=== PATIENT | female | born 1975 | race Caucasian/White ===

== ENCOUNTER 2020-04-30 13:54 | Emergency (ER) | payer OTHER | END 2020-04-30 16:51 | disposition home or self-care (01) | LOC: JVIRT 13:54 | DX: U07.1 COVID-19 (principal) | CPT/HCPCS: C9803; G2251-GT; U0003 ==

== ENCOUNTER 2021-11-03 17:57 | Emergency (ER) | payer OTHER ==
[2021-11-03 18:04] VITALS: BP 106/70; PULSE 92; RESP 18; TEMP 97.9; BMI 27.3
[2021-11-03] MEDS ORDERED: KETOROLAC TROMETHAMINE 30 MG/1 ML VIAL IM ONE (18:47)
[2021-11-03] MEDS ORDERED: KETOROLAC TROMETHAMINE 30 MG/1 ML VIAL ONE (19:00)
[2021-11-03] MEDS ORDERED: LIDOCAINE 5% TOPICAL PATCH TP ONE (19:17)
[2021-11-03] MEDS ORDERED: LIDOCAINE 5% TOPICAL PATCH ONE (19:19)
[2021-11-03] MEDS ORDERED: LIDOCAINE PATCH REMOVAL MC SCH (22:00)
== END 2021-11-03 19:34 | disposition home or self-care (01) ==
LOC: JER 17:57
PROC: 3E023GC Introduction of Other Therapeutic Substance into Muscle, Percutaneous Approach (ICD-10-PCS; principal; 2021-11-03)
DX: M94.0 Chondrocostal junction syndrome [Tietze] (principal)
CPT/HCPCS: 71101-TC-LT-FY; 93005; 93010; 99284-25

== ENCOUNTER 2021-11-27 02:38 | Emergency (ER) | payer OTHER ==
[2021-11-27 02:49] VITALS: BP 101/69; PULSE 88; RESP 18; TEMP 98.5; BMI 27.3
[2021-11-27] MEDS ORDERED: ACETAMINOPHEN 500 MG TABLET (FP) PO ONE (03:20)
[2021-11-27] MEDS ORDERED: DEXAMETHASONE SOD PHOSPHATE 10 MG/1 ML VIAL IM ONE (03:22)
[2021-11-27] MEDS ORDERED: KETOROLAC TROMETHAMINE 30 MG/1 ML VIAL IM ONE (03:22)
[2021-11-27] MEDS ORDERED: KETOROLAC TROMETHAMINE 30 MG/1 ML VIAL ONE (03:23)
[2021-11-27] MEDS ORDERED: DEXAMETHASONE SOD PHOSPHATE 10 MG/1 ML VIAL ONE (03:23)
[2021-11-27] MEDS ORDERED: AMOX TR/POT CLAV 875MG/125MG TABLETS (FP) PO ONE (03:27)
[2021-11-27] MEDS ORDERED: AMOX TR/POT CLAV 875MG/125MG TABLETS (FP) ONE (03:28)
== END 2021-11-27 03:51 | disposition home or self-care (01) ==
LOC: JER 02:38
PROC: 3E023GC Introduction of Other Therapeutic Substance into Muscle, Percutaneous Approach (ICD-10-PCS; principal; 2021-11-27)
DX: H66.91 Otitis media, unspecified, right ear (principal); J02.9 Acute pharyngitis, unspecified
CPT/HCPCS: 0241U-QW; 87651; 99284-25; J1100

== ENCOUNTER 2024-08-15 00:33 | Emergency (ER) | payer OTHER ==
[2024-08-15 00:42] VITALS: BP 115/78; PULSE 86; RESP 18; TEMP 98.4; BMI 28.5
[2024-08-15] MEDS ORDERED: ACETAMINOPHEN INJECTION 100 ML ONE (02:18)
[2024-08-15] MEDS: ACETAMINOPHEN 1000 MG/100 ML BAG IVPB ONE (02:22)
[2024-08-15] MEDS: SODIUM CHLORIDE 0.9% 500 ML INFUS.BAG IV ONE (02:22)
[2024-08-15 02:35] LABS: INR 0.98 (0.83-1.09); PROTHROMBIN TIME (PATIENT) 10.7 SEC (9.7-13.0)
[2024-08-15 02:42] LABS: POTASSIUM 3.9 mmol/L (3.5-5.1)
[2024-08-15 02:44] LABS: CALCIUM 9.6 mg/dL (8.5-10.1)
[2024-08-15 02:45] LABS: ALBUMIN 3.5 g/dl (3.4-5.0); BLOOD UREA NITROGEN 13.8 mg/dL (7-18)
[2024-08-15 02:48] LABS: CREATININE 0.8 mg/dL (0.55-1.3)
[2024-08-15 02:50] LABS: BILIRUBIN,TOTAL 0.3 mg/dL (0.2-1); TOT PROT 6.3 g/dl (6.4-8.2)
[2024-08-15 04:47] LABS: ABSOLUTE IMMATURE GRANULOCYTES 0.03 x10^3/uL (0.0-0.031); BASOPHILS # 0.03 x10^3/uL (0.01-0.08); EOSINOPHIL % 1.7 % (0.7-5.8); EOSINOPHILS # 0.12 x10^3/uL (0.04-0.36); HEMOGLOBIN 8.4 g/dL (11.2-15.7); MCHC 31.1 g/dl (32.2-35.5); MEAN CELL VOLUME 92.8 fl (79.4-94.8); MEAN PLT VOLUME 9.9 fl (9.4-12.3); MONOCYTE # 0.46 x10^3/uL (0.24-0.86); MONOCYTE % 6.4 % (4.7-12.5); PLATELET COUNT 364 x10^3/uL (182-369)
[2024-08-16 21:27] LABS: HIV INTERPRETATION NEGATIVE (NEGATIVE)
[2024-08-16 23:27] LABS: HCV DIAGNOSTIC IN-HOUSE W/RFLX NON-REACTIVE (NONREACTIVE)
== END 2024-08-15 05:45 | disposition home or self-care (01) ==
LOC: JER 00:33
PROC: 3E033NZ Introduction of Analgesics, Hypnotics, Sedatives into Peripheral Vein, Percutaneous Approach (ICD-10-PCS; principal; 2024-08-15)
DX: D64.9 Anemia, unspecified (principal); N93.9 Abnormal uterine and vaginal bleeding, unspecified
CPT/HCPCS: 36415; 36430; 80053; 84703; 85025; 85610; 86803; 86850; 86900; 86901; 86922; 87389; 99284-25; P9058

== ENCOUNTER 2024-10-13 06:11 | Inpatient (IN) | payer OTHER ==
[2024-10-13 08:43] VITALS: BMI 25.7
[2024-10-13] MEDS ORDERED: CEFAZOLIN 2 GM in DEXTROSE 5%-WATER - 100 ML IVPB ONE (10:15)
[2024-10-13] MEDS ORDERED: TRANEXAMIC ACID 1000 MG/10 ML VIAL IVPUSH ONE (10:15)
[2024-10-13] MEDS ORDERED: MIDAZOLAM HCL 2 MG/2 ML SINGLE DOSE VIAL ONE (12:44)
[2024-10-13] MEDS ORDERED: KETOROLAC TROMETHAMINE 30 MG/1 ML VIAL ONE (12:45)
[2024-10-13] MEDS ORDERED: ONDANSETRON 4 MG/2 ML VIAL ONE (12:45)
[2024-10-13] MEDS ORDERED: DEXAMETHASONE SOD PHOSPHATE 4 MG/1 ML VIAL ONE (12:45)
[2024-10-13] MEDS ORDERED: ROCURONIUM BROMIDE 50 MG/5 ML SYRINGE ONE (14:38)
[2024-10-13] MEDS ORDERED: SIMETHICONE 80 MG TAB.CHEW (FP) PO PRN (15:57)
[2024-10-13] MEDS ORDERED: DOCUSATE SODIUM 100 MG CAPSULE (FP) PO PRN (15:57)
[2024-10-13] MEDS ORDERED: ONDANSETRON 4 MG/2 ML VIAL IVPUSH PRN ×3 (15:57→17:14)
[2024-10-13] MEDS ORDERED: TRANEXAMIC ACID 1000 MG/10 ML VIAL ONE (16:17)
[2024-10-13] MEDS ORDERED: PROPOFOL 20 ML ONE (16:25)
[2024-10-13] MEDS ORDERED: NEOSTIGMINE METHYLSULFATE 0.5 MG/1 ML - 10 ML MDV ONE (16:34)
[2024-10-13] MEDS ORDERED: GLYCOPYRROLATE 0.2 MG/1 ML VIAL ONE (16:34)
[2024-10-13] MEDS: HYDROmorphone *PCA* 10MG/50ML DISP.SYRIN PCA SCH (17:49)
[2024-10-13] MEDS: LACTATED RINGERS SOLUTION 1,000 ML IV SCH (18:04)
[2024-10-13] MEDS: ACETAMINOPHEN 1000 MG/100 ML BAG IVPB ONE (20:38)
[2024-10-13 20:56] VITALS: RESP 18
[2024-10-13] MEDS: ONDANSETRON 4 MG/2 ML VIAL IVPUSH PRN (21:01)
[2024-10-13] MEDS ORDERED: ACETAMINOPHEN 1000 MG/100 ML BAG IVPB PRN (21:25)
[2024-10-13] MEDS ORDERED: IBUPROFEN 800 MG/8 ML IJ IVPB PRN (21:26)
[2024-10-13] MEDS: CEFAZOLIN 1 GM in DEXTROSE 5%-WATER - 50 ML IVPB SCH (22:21)
[2024-10-13] MEDS: ACETAMINOPHEN 1000 MG/100 ML BAG IVPB SCH (23:01)
[2024-10-14] MEDS: IBUPROFEN 800 MG/8 ML IJ IVPB PRN (00:03)
[2024-10-14 08:27] LABS: MCHC 28.7 g/dl (32.2-35.5); MEAN CELL VOLUME 76.6 fl (79.4-94.8); MEAN PLT VOLUME 10.5 fl (9.4-12.3); RDW 20.1 % (12.2-17.1)
[2024-10-14] MEDS: BISACODYL 5 MG TABLET.DR (FP) PO PRN (08:38)
[2024-10-14] MEDS: FAMOTIDINE 40 MG TABLET PO SCH (09:30)
[2024-10-14] MEDS: FERROUS SO4 325 MG TABLET (FP) PO SCH (09:30)
[2024-10-14] MEDS: ENOXAPARIN NA (PORCINE) 40 MG/0.4 ML DISP.SYRIN SQ SCH (09:33)
[2024-10-14] MEDS: ACETAMINOPHEN 500 MG TABLET (FP) PO PRN (12:04)
[2024-10-14] MEDS: IBUPROFEN 600 MG TABLET (FP) PO PRN (14:04)
[2024-10-14 23:11] VITALS: TEMP 98.2
[2024-10-15] MEDS: FAMOTIDINE 20 MG TABLET PO SCH (09:24)
[2024-10-15 09:56] VITALS: BP 112/82; PULSE 89
== END 2024-10-15 12:45 | disposition home or self-care (01) | DRG 519 ==
LOC: JASU-SURG 06:11 → J2C 15:57 → J3W 19:40
PROVIDERS: ADMIT Specialist; ATTEND Specialist
PROC: 0UT90ZZ Resection of Uterus, Open Approach (ICD-10-PCS; principal; 2024-10-13 10:45)
PROC: 0UT70ZZ Resection of Bilateral Fallopian Tubes, Open Approach (ICD-10-PCS; 2024-10-13 10:45)
DX: D25.9 Leiomyoma of uterus, unspecified (principal); R10.2 Pelvic and perineal pain; N80.03 Adenomyosis of the uterus
CPT/HCPCS: 36415; 80053; 85027; 85610; 85730; 86850; 86900; 86901; 88305-TC; 88307-TC; 94760

== ENCOUNTER 2024-10-17 22:37 | Emergency (ER) | payer OTHER ==
[2024-10-17 22:48] VITALS: BP 134/76; PULSE 88; RESP 18; TEMP 98.4; BMI 29.2
[2024-10-17] MEDS: morphine CARPU-JECT 4 MG/1 ML DISP.SYRIN IVPUSH ONE (23:38)
[2024-10-17 23:41] LABS: ABSOLUTE IMMATURE GRANULOCYTES 0.03 x10^3/uL (0.0-0.031); BASOPHILS # 0.02 x10^3/uL (0.01-0.08); BG HCT 26.0 % (32.4-45.2); EOSINOPHIL % 1.1 % (0.7-5.8); EOSINOPHILS # 0.09 x10^3/uL (0.04-0.36); MCHC 28.7 g/dl (32.2-35.5); MEAN CELL VOLUME 76.6 fl (79.4-94.8); MEAN PLT VOLUME 9.2 fl (9.4-12.3); MONOCYTE # 0.53 x10^3/uL (0.24-0.86); MONOCYTE % 6.6 % (4.7-12.5); RDW 20.9 % (12.2-17.1); VENOUS BASE EXCESS 1.2 mmol/L (-2-2); VENOUS O2 SATURATION 19.8 % (70-80); VENOUS PCO2 43.5 mmHg (38-52); VENOUS PH 7.398 (7.310-7.410)
[2024-10-17 23:51] LABS: INR 1.08 (0.83-1.09); PROTHROMBIN TIME (PATIENT) 11.8 SEC (9.7-13.0)
[2024-10-17 23:54] LABS: ACTIVATED PTT 27.1 SECONDS (25.2-36.5)
[2024-10-17 23:57] LABS: GLUCOSE,RANDOM 107.0 mg/dL (74-106)
[2024-10-17 23:58] LABS: TOT PROT 6.8 g/dl (6.4-8.2)
[2024-10-17 23:59] LABS: CO2 25.0 mmol/L (21-32)
[2024-10-18 00:01] LABS: ALK PHOS 67.0 U/L (40-150)
[2024-10-18 00:03] LABS: CREATININE 1.04 mg/dL (0.55-1.3); SGOT/AST 60.0 U/L (5-34); SGPT/ALT 65.0 U/L (0-55)
[2024-10-18 00:24] LABS: HCV DIAGNOSTIC IN-HOUSE W/RFLX NON-REACTIVE (NONREACTIVE); HIV INTERPRETATION NEGATIVE (NEGATIVE)
[2024-10-18] MEDS ORDERED: KETOROLAC TROMETHAMINE 15 MG/ML VIAL ONE (01:07)
[2024-10-18] MEDS: KETOROLAC TROMETHAMINE 15 MG/ML VIAL IVPUSH ONE (01:25)
[2024-10-18 01:49] LABS: URINE APPEARANCE CLEAR; URINE BILIRUBIN NEGATIVE (NEGATIVE); URINE COLOR YELLOW; URINE GLUCOSE (UA) NEGATIVE (NEGATIVE); URINE KETONE TRACE (NEGATIVE); URINE PROTEIN 30 (NEGATIVE); URINE UROBILINOGEN 0.2 mg/dL (0.2-1.0)
[2024-10-18 01:50] LABS: URINE LEUK ESTERASE NEGATIVE (NEGATIVE); URINE NITRITE NEGATIVE (NEGATIVE)
[2024-10-18 01:51] LABS: EPI CELLS 31.0 /uL (0-25.1); HYALINE CASTS 1.0 /uL (0-3.1); URINE BACTERIA 2.8 /uL (0-1359); URINE RBC 11.4 /uL (0-23.9); URINE WBC 9.7 /uL (0-25.8)
== END 2024-10-18 02:23 | disposition home or self-care (01) ==
LOC: JER 22:37
PROC: 3E0333Z Introduction of Anti-inflammatory into Peripheral Vein, Percutaneous Approach (ICD-10-PCS; principal; 2024-10-18)
PROC: 3E033NZ Introduction of Analgesics, Hypnotics, Sedatives into Peripheral Vein, Percutaneous Approach (ICD-10-PCS; 2024-10-18)
DX: N13.30 Unspecified hydronephrosis (principal); G89.18 Other acute postprocedural pain; R10.12 Left upper quadrant pain; R10.32 Left lower quadrant pain; M54.6 Pain in thoracic spine; R11.2 Nausea with vomiting, unspecified
CPT/HCPCS: 36415; 74177-TC; 80053; 81003; 82803; 83690; 83735; 85025; 85610; 85730; 86803; 87086; 87389; 93005; 93010; 99285-25